=== PATIENT | female | born 1965 | race Caucasian/White ===

== ENCOUNTER 2020-04-21 10:32 | Outpatient (CLI) | payer BC, OTHER, SELFPAY ==
--- NOTE | 2020-04-26 11:42 | WPDHOLTEREM ---
Holter/Event Monitor Holter/Event Monitor Date of procedure: 04/21/20 Procedure Type: 48 hour holter monitor Indications: Palpitations Conclusion: 1. 48 hour holter monitor on 04/21/20. 2. Underlying rhythm is sinus rhythm. HR range 52-111 bpm; average HR 78 bpm. 3. There are 5 premature supraventricular complexes. No supraventricular tachycardia. 4. No premature ventricular complexes. No ventricular tachycardia. 5. No sinoatrial or atrioventricular blocks. No significant pauses greater than 2 seconds. 6. Patient reports symptoms of trouble breathing and dizziness which demonstrate sinus rhythm, HR range 90-94 bpm.
== END 2020-04-21 10:33 | disposition home or self-care (01) ==
LOC: ANHCARD 10:34
PROVIDERS: PCP Family Medicine; Visit Provider Family Medicine
DX: R00.2 Palpitations (principal)
CPT/HCPCS: 93225; 93226

== ENCOUNTER 2020-04-29 10:25 | Outpatient (CLI) | payer BC, OTHER, SELFPAY ==
--- NOTE | ~2020-04-29 | MM_ITS ---
EXAMINATION: MM screening adolfo BI w liang HISTORY: Screening TECHNIQUE: Craniocaudal and mediolateral oblique 3-D tomosynthesis images were obtained and synthetic 2-D images were generated. CAD analysis was submitted and interpreted. COMPARISON: Comparison to multiple prior studies sequentially, with oldest reviewed study dated 12/2017. BREAST PARENCHYMAL COMPOSITION: There are scattered areas of fibroglandular density. FINDINGS: There is no evidence of suspicious mass, calcification, or architectural distortion to sugg est malignancy in either breast. There has been no suspicious interval change. IMPRESSION: 1. No mammographic evidence of malignancy. 2. Recommend routine screening mammography in one year. BI-RADS Category 1: Negative Reviewed, dictated and finalized at location A.
== END 2020-04-29 10:26 | disposition home or self-care (01) ==
PROVIDERS: PCP Family Medicine; Visit Provider Family Medicine
DX: Z12.31 Encounter for screening mammogram for malignant neoplasm of breast (principal)
CPT/HCPCS: 77063; 77067

== ENCOUNTER 2020-11-13 12:03 | Emergency (ER) | payer BC, MEDICAID, SELFPAY ==
[2020-11-13 12:12] VITALS: BP 123/78; PULSE 78; RESP 16; TEMP 36.7; O2SAT 98
--- NOTE | 2020-11-13 12:27 | ED.URI ---
HPI - URI/Sore Throat General Chief Complaint: Upper Respiratory Infection Stated Complaint: sinus infection Source: patient, RN notes reviewed and old records reviewed Mode of arrival: ambulatory Limitations: no limitations History of Present Illness HPI Narrative: 55 year old female presents to express care with complaints of progressively increase in symptoms of sore throat, nasal stuffiness, low grade fever, and cough since Sunday. Patient states that she called her doctor and was prescribed Augmentin and she has been taking antibiotic since . Patient states that she has had intermittent temperatures up to 102F since Sunday and has been taking Tylenol and she started Mucinex last night. She reports that she is expectorating clear sputum with her cough and has noted some dyspnea with exertion. Patient is non smoker had had history of past bronchitis, pneumonia and sinusitis. MD elicited complaint: cough, sore throat and nasal congestion Pertinent past history: pneumonia and sinusitis Onset (ago): day(s) (4) Consistency: progressively worsening Exacerbating factors: swallowing and exertion Associated symptoms: fever Treatments prior to arrival: acetaminophen and other (started Augmentin on The from PCP, started ) Related Data Home Medications Medication Instructions Recorded Confirmed alprazolam 0.25 mg PO DAILY 07/03/19 11/13/20 carbidopa-levodopa 1 tablet PO DIRECTED 07/03/19 11/13/20 fenofibrate nanocrystallized 145 mg PO DAILY 07/03/19 11/13/20 fluoxetine 20 mg PO DAILY 07/03/19 11/13/20 metformin 500 mg PO DIRECTED 07/03/19 11/13/20 montelukast mg 07/03/19 10/28/20 topiramate 07/03/19 10/28/20 amitriptyline 10 mg tablet 10 mg PO DAILY tablet 10/28/20 11/13/20 atorvastatin 20 mg tablet 20 mg PO DAILY tablet 10/28/20 11/13/20 blood sugar diagnostic #10 ea 10/28/20 10/28/20 butalbital 50 mg-acetaminophen 325 1 cap PO Q4H PRN 10/28/20 11/13/20 mg-caffeine 40 mg-codeine 30 mg cap lancets 33 gauge #100 ea 10/28/20 10/28/20 phenytoin sodium extended 100 mg 100 mg PO DAILY cap 04/08/21 04/08/21 capsule sumatriptan succinate 100 mg tablet 100 mg PO ONCE 10/28/20 10/28/20 amoxicillin-pot clavulanate 1 tablet PO BID 11/13/20 11/13/20 Allergies Allergy/AdvReac Type Severity Reaction Status Date / Time hydrochlorothiazide Allergy Unknown Unknown Verified 11/13/20 12:11 iodine Allergy Unknown Unknown Verified 11/13/20 12:11 sertraline Allergy Unknown Unknown Verified 11/13/20 12:11 SEAFOOD Allergy Unknown RASH Uncoded 11/13/20 12:11 Review of Systems Review of Systems: Narrative: CONSTITUTIONAL: Reports intermittent fever, chills, or sweats. EYES: Denies visual changes, redness, or discharge. ENT:Positive rhinorrhea, congestion, facial sinus pressure, sore throat, or otalgia. CARDIOVASCULAR: Denies chest pain, palpitations, or edema. RESPIRATORY: Positive cough with stated dyspnea on exertion GASTROINTESTINAL: Denies abdominal pain, nausea, vomiting, or diarrhea. GENITOURINARY: Denies dysuria or hematuria. SKIN: Denies rash or itching. MUSCULOSKELETAL: Denies back pain, joint pain, or myalgia. NEUROLOGIC: Denies headache, numbness, or weakness. PSYCHIATRIC: Positive history anxiety or depression. All systems reviewed & are unremarkable except as noted in HPI and below PMFSH Past Medical History Medical History Anxiety with depression Arthritis Bronchitis Diabetes Diverticulitis DVT (deep venous thrombosis) Hyperlipidemia Migraines Restless leg syndrome Seasonal allergies Seizures Surgical History Surgical History H/O: hysterectomy History of repair of inguinal hernia History of tonsillectomy and adenoidectomy Previous section S/P right colectomy Family History Family History Mother Hypertension Family h
[2020-11-13 12:32] VITALS: BP 123/78; PULSE 78; RESP 16; TEMP 36.7; O2SAT 98
[2020-11-14 00:41] LABS: SARS-CoV-2 RNA PCR Negative
== END 2020-11-13 13:06 | disposition home or self-care (01) ==
PROVIDERS: Emergency Provider Registered Nurse
DX: R05 Cough (principal); J06.9 Acute upper respiratory infection, unspecified; Z20.822 Contact with and (suspected) exposure to COVID-19; Z87.891 Personal history of nicotine dependence; M19.90 Unspecified osteoarthritis, unspecified site; E11.9 Type 2 diabetes mellitus without complications; Z86.718 Personal history of other venous thrombosis and embolism; E78.5 Hyperlipidemia, unspecified; G25.81 Restless legs syndrome; F41.8 Other specified anxiety disorders; G40.909 Epilepsy, unspecified, not intractable, without status epilepticus
CPT/HCPCS: 87081; 87426; 87880; 99213; C9803; G0463; U0003; U0005

== ENCOUNTER 2021-08-05 17:34 | Emergency (ER) | payer MEDICAID, SELFPAY ==
[2021-08-05 18:04] VITALS: BP 153/81; PULSE 74; RESP 16; TEMP 36.4; O2SAT 98
--- NOTE | 2021-08-05 18:30 | ED.URI ---
HPI - URI/Sore Throat General Chief Complaint: Upper Respiratory Infection Stated Complaint: Sinus Time Seen by Provider: 08/05/21 18:30 Source: patient and RN notes reviewed Mode of arrival: ambulatory Limitations: no limitations History of Present Illness HPI Narrative: 56-year-old female presents with concern for 2-week history of nasal congestion, rhinorrhea, cough. She reports she has been taking [id number] medications with some relief. She reports she found out today that her tested positive for COVID he was had symptoms for approximately 5 days. Reports she was sick before he was. She reports she requires a COVID test to return to work. MD elicited complaint: cough and sore throat Related Data Home Medications Medication Instructions Recorded Confirmed alprazolam 0.25 mg PO DAILY 07/03/19 11/13/20 carbidopa-levodopa 1 tablet PO DIRECTED 07/03/19 11/13/20 fenofibrate nanocrystallized 145 mg PO DAILY 07/03/19 11/13/20 fluoxetine 20 mg PO DAILY 07/03/19 11/13/20 metformin 500 mg PO DIRECTED 07/03/19 11/13/20 montelukast mg 07/03/19 10/28/20 topiramate 07/03/19 10/28/20 amitriptyline 10 mg tablet 10 mg PO DAILY tablet 10/28/20 11/13/20 atorvastatin 20 mg tablet 20 mg PO DAILY tablet 10/28/20 11/13/20 blood sugar diagnostic #10 ea 10/28/20 10/28/20 butalbital 50 mg-acetaminophen 325 1 cap PO Q4H PRN 10/28/20 11/13/20 mg-caffeine 40 mg-codeine 30 mg cap lancets 33 gauge #100 ea 10/28/20 10/28/20 phenytoin sodium extended 100 mg 100 mg PO DAILY cap 10/28/20 10/28/20 capsule sumatriptan succinate 100 mg tablet 100 mg PO ONCE 10/28/20 10/28/20 Allergies Allergy/AdvReac Type Severity Reaction Status Date / Time hydrochlorothiazide Allergy Unknown Unknown Verified 11/13/20 12:11 iodine Allergy Unknown Unknown Verified 11/13/20 12:11 sertraline Allergy Unknown Unknown Verified 11/13/20 12:11 SEAFOOD Allergy Unknown RASH Uncoded 11/13/20 12:11 Review of Systems Review of Systems: CONSTITUTIONAL: Denies malaise, chills, sweats, or fever. EYES: Denies visual changes, redness, or discharge. ENT: Reports rhinorrhea, congestion. Denies sinus pain, otalgia and sore throat. CARDIOVASCULAR: Denies chest pain, palpitations, or edema. RESPIRATORY: Reports cough. Denies dyspnea. GASTROINTESTINAL: Denies abdominal pain, nausea, vomiting, diarrhea SKIN: Denies rash or itching. MUSCULOSKELETAL: Denies myalgia. NEUROLOGIC: Denies headache. All systems reviewed & are unremarkable except as noted in HPI and below PMFSH Past Medical History Medical History Anxiety with depression Arthritis Bronchitis Diabetes Diverticulitis DVT (deep venous thrombosis) Hyperlipidemia Migraines Restless leg syndrome Seasonal allergies Seizures Surgical History Surgical History H/O: hysterectomy History of repair of inguinal hernia History of tonsillectomy and adenoidectomy Previous section S/P right colectomy Family History Family History Mother Hypertension Family history of chronic obstructive pulmonary disease Family history of congestive heart failure Patient's mother is Family history of cardiovascular disease Family history of emphysema Father Cerebrovascular accident Family history of diabetes mellitus in first degree relative Family history of kidney disease Diabetes mellitus Sibling Depression Social History Social History (Updated 11/13/20 @ 12:37 by Suzette Gracia NP) Smoking status: Former smoker Alcohol intake: current Substance use: never Gender identity (if verbalized by the patient): Female Comments At time of signature, agree with nursing past medical, surgical, social and family history. There is no relevant family history pertinent to the presenting complaint Exam Na
== END 2021-08-05 19:01 | disposition home or self-care (01) ==
PROVIDERS: Emergency Provider Nurse Practitioner
DX: J40 Bronchitis, not specified as acute or chronic (principal); Z20.822 Contact with and (suspected) exposure to COVID-19; M19.90 Unspecified osteoarthritis, unspecified site; E11.9 Type 2 diabetes mellitus without complications; Z86.718 Personal history of other venous thrombosis and embolism; E78.5 Hyperlipidemia, unspecified; G25.81 Restless legs syndrome; G40.909 Epilepsy, unspecified, not intractable, without status epilepticus; F41.9 Anxiety disorder, unspecified; F32.9 Major depressive disorder, single episode, unspecified
CPT/HCPCS: 87426; 99213; C9803; G0463

== ENCOUNTER 2021-12-27 13:21 | Emergency (ER) | payer OTHER, SELFPAY ==
--- NOTE | ~2021-12-27 | XR_ITS ---
XR knee RT 3V DATE: 12/27/2021 13:48 INDICATION: Generalized right knee pain after straining injury 4 days ago TECHNIQUE: 3 views COMPARISON: None FINDINGS: Minimal periarticular at all 3 compartments consistent with mild osteoarthritis. Medial and lateral compartment joint spaces appear relatively well preserved. No fracture or dislocation or joint effusion, radiopaque intra-articular loose body or chondrocalcino sis is noted. No periosteal reaction or bone destruction. IMPRESSION: Mild tricompartment osteoarthritis Reviewed, dictated and finalized at location [facility].
[2021-12-27 13:30] VITALS: BP 129/69; PULSE 73; RESP 16; TEMP 36.8; O2SAT 99
--- NOTE | 2021-12-27 13:30 | ED.LOWEXIN ---
HPI - Extremity Injury (Lower) General Chief Complaint: Extremity Injury, Lower Stated Complaint: Right Knee Pain Time Seen by Provider: 12/27/21 13:31 Source: patient and RN notes reviewed Mode of arrival: ambulatory Limitations: no limitations History of Present Illness HPI Narrative: 56-year-old female presents to the [facility] with complaints of right knee pain. Had a twisting injury on Sunday, 4 days ago while walking upstairs. History of chronic knee pain. No swelling or bruising noted. Did not fall. Full range of motion. Full range of motion of the ankle. Positive pedal pulse. Related Data Home Medications Medication Instructions Recorded Confirmed alprazolam 0.25 mg tablet 0.25 mg PO DAILY 07/03/19 12/27/21 carbidopa 25 mg-levodopa 100 mg 1 tablet PO DIRECTED 07/03/19 12/27/21 tablet fenofibrate nanocrystallized 145 145 mg PO DAILY 07/03/19 12/27/21 mg tablet fluoxetine 20 mg capsule 20 mg PO DAILY 07/03/19 12/27/21 metformin 500 mg tablet 500 mg PO DIRECTED 07/03/19 12/27/21 montelukast 10 mg tablet 10 mg PO DAILY 07/03/19 12/27/21 topiramate 100 mg tablet 100 mg PO DAILY 07/03/19 12/27/21 amitriptyline 10 mg tablet 10 mg PO DAILY 10/28/20 12/27/21 atorvastatin 20 mg tablet 20 mg PO DAILY 10/28/20 12/27/21 blood sugar diagnostic #10 ea 10/28/20 10/28/20 butalbital 50 mg-acetaminophen 325 1 cap PO Q4H PRN Pain 10/28/20 12/27/21 mg-caffeine 40 mg-codeine 30 mg cap lancets 33 gauge (BD Ultra Fine #100 ea 10/28/20 10/28/20 Lancets) phenytoin sodium extended 100 mg 100 mg PO DAILY 10/28/20 12/27/21 capsule sumatriptan succinate 100 mg tablet 100 mg PO ONCE 10/28/20 12/27/21 Allergies Allergy/AdvReac Type Severity Reaction Status Date / Time hydrochlorothiazide Allergy Unknown Unknown Verified 12/27/21 13:31 iodine Allergy Unknown Unknown Verified 12/27/21 13:31 sertraline Allergy Unknown Unknown Verified 12/27/21 13:31 fentanyl Allergy Other Verified 12/27/21 13:44 SEAFOOD Allergy Unknown RASH Uncoded 12/27/21 13:31 Review of Systems Review of Systems: All systems reviewed & are unremarkable except as noted in HPI and below Constitutional: Constitutional: Reports no additional constitutional complaints, Denies chills and Denies fever(s) Eyes: Eyes: Reports no additional eye complaints ENT: Reports system reviewed and no additional complaints, except as documented Cardiovascular: Cardiovascular: Reports no additional cardiovascular complaints Respiratory: Respiratory: Reports no additional respiratory complaints Gastrointestinal: Gastrointestinal: Reports no additional gastrointestinal complaints Musculoskeletal: Musculoskeletal: Reports as per HPI, Reports arthralgias (Right knee) and Denies joint swelling Integumentary/Breasts: Skin/Breast: Reports system reviewed and no additional complaints, except as docu Neurologic: Reports system reviewed and no additional complaints, except as documented Psychiatric: Psychiatric: Reports no additional psychiatric complaints Allergic/Immunologic: Allergic/Immunologic: Reports no additional allergic/immunologic complaints PMFSH Past Medical History Medical History Anxiety with depression Arthritis Bronchitis Diabetes Diverticulitis DVT (deep venous thrombosis) Hyperlipidemia Migraines Restless leg syndrome Seasonal allergies Seizures Surgical History Surgical History H/O: hysterectomy History of repair of inguinal hernia History of tonsillectomy and adenoidectomy Previous section S/P right colectomy Family History Family History Mother Hypertension Family history of chronic obstructive pulmonary disease Family history of congestive heart failure Patient's mother is Family history of cardiovascular disease Family history of emphysema Fath
[2021-12-27 13:34] VITALS: BP 129/69; PULSE 73; RESP 16; TEMP 36.8; O2SAT 99
== END 2021-12-27 14:07 | disposition home or self-care (01) ==
PROVIDERS: Emergency Provider Nurse Practitioner; PCP Physician Assistant
DX: S83.91XA Sprain of unspecified site of right knee, initial encounter (principal); X50.9XXA Other and unspecified overexertion or strenuous movements or postures, initial encounter; M17.11 Unilateral primary osteoarthritis, right knee; Z87.891 Personal history of nicotine dependence; E11.9 Type 2 diabetes mellitus without complications; Z86.718 Personal history of other venous thrombosis and embolism; E78.5 Hyperlipidemia, unspecified; G25.81 Restless legs syndrome; G40.909 Epilepsy, unspecified, not intractable, without status epilepticus
CPT/HCPCS: 73562; 99213; G0463

== ENCOUNTER 2022-07-21 15:22 | Emergency (ER) | payer OTHER, SELFPAY ==
[2022-07-21 15:34] VITALS: BP 149/89; PULSE 64; RESP 20; TEMP 36.5; O2SAT 100
--- NOTE | 2022-07-21 16:00 | ED.URI ---
HPI - URI/Sore Throat General Chief Complaint: Upper Respiratory Infection Stated Complaint: Sore Throat, SOB, Cough Time Seen by Provider: 07/21/22 16:00 Source: patient Mode of arrival: ambulatory Limitations: no limitations History of Present Illness HPI Narrative: 57-year-old female presents with complaint of cough, chest congestion for 1 month. States that she saw her primary care physician for same complaint and was given Augmentin with no improvement. States she called her doctor back and told her that she was still coughing and was told to go to urgent care because she did not know what was wrong with her . Patient denies shortness of breath. No recent fever. Cough is worse at night. All systems reviewed and negative except as noted above. Related Data Home Medications Medication Instructions Recorded Confirmed alprazolam 0.25 mg tablet 0.25 mg PO DAILY 07/03/19 07/21/22 carbidopa 25 mg-levodopa 100 mg 1 tablet PO DIRECTED 07/03/19 07/21/22 tablet fenofibrate nanocrystallized 145 145 mg PO DAILY 07/03/19 07/21/22 mg tablet fluoxetine 20 mg capsule 20 mg PO DAILY 07/03/19 07/21/22 metformin 500 mg tablet 500 mg PO DIRECTED 07/03/19 07/21/22 montelukast 10 mg tablet 10 mg PO DAILY 07/03/19 07/21/22 topiramate 100 mg tablet 100 mg PO DAILY 07/03/19 07/21/22 amitriptyline 10 mg tablet 10 mg PO DAILY 10/28/20 07/21/22 atorvastatin 20 mg tablet 20 mg PO DAILY 10/28/20 07/21/22 blood sugar diagnostic #10 ea 10/28/20 07/21/22 butalbital 50 mg-acetaminophen 325 1 cap PO Q4H PRN Pain 10/28/20 07/21/22 mg-caffeine 40 mg-codeine 30 mg cap lancets 33 gauge (BD Ultra Fine #100 ea 10/28/20 07/21/22 Lancets) phenytoin sodium extended 100 mg 100 mg PO DAILY 10/28/20 07/21/22 capsule sumatriptan succinate 100 mg tablet 100 mg PO ONCE 10/28/20 07/21/22 hydroxyzine HCl 25 mg tablet 25 mg PO DAILY 07/21/22 07/21/22 Allergies Allergy/AdvReac Type Severity Reaction Status Date / Time hydrochlorothiazide Allergy Unknown Unknown Verified 07/21/22 15:28 iodine Allergy Unknown Unknown Verified 07/21/22 15:28 sertraline Allergy Unknown Unknown Verified 07/21/22 15:28 fentanyl Allergy Other Verified 07/21/22 15:28 SEAFOOD Allergy Unknown RASH Uncoded 07/21/22 15:28 Review of Systems Review of Systems: CONSTITUTIONAL: Denies fever, chills, or sweats. EYES: Denies visual changes, redness, or discharge. ENT: Denies rhinorrhea, congestion, sore throat, or otalgia. CARDIOVASCULAR: denies chest pain, palpitations, or edema. RESPIRATORY: reports cough, chest congestion. Denies dyspnea. GASTROINTESTINAL: Denies abdominal pain, nausea, vomiting, or diarrhea. GENITOURINARY: Denies dysuria or hematuria. SKIN: Denies rash or itching. MUSCULOSKELETAL: Denies back pain, joint pain, or myalgia. NEUROLOGIC: Denies headache, numbness, or weakness. PSYCHIATRIC: Denies anxiety or depression. All other systems reviewed are negative, except as documented in HPI. [facility] Past Medical History Medical History Anxiety with depression Arthritis Bronchitis Diabetes Diverticulitis DVT (deep venous thrombosis) Hyperlipidemia Migraines Restless leg syndrome Seasonal allergies Seizures Surgical History Surgical History H/O: hysterectomy History of repair of inguinal hernia History of tonsillectomy and adenoidectomy Previous section S/P right colectomy Family History Family History Mother Hypertension Family history of chronic obstructive pulmonary disease Family history of congestive heart failure Patient's mother is Family history of cardiovascular disease Family history of emphysema Father Cerebrovascular accident Family history of diabetes mellitus in first degree relative Family history of kidney disease Diabetes mellitus Sibli
== END 2022-07-21 16:20 | disposition home or self-care (01) ==
PROVIDERS: Emergency Provider Nurse Practitioner Family; PCP Physician Assistant
DX: J20.9 Acute bronchitis, unspecified (principal); Z87.891 Personal history of nicotine dependence; M19.90 Unspecified osteoarthritis, unspecified site; E11.9 Type 2 diabetes mellitus without complications; Z79.84 Long term (current) use of oral hypoglycemic drugs; E78.5 Hyperlipidemia, unspecified; G25.81 Restless legs syndrome; F41.9 Anxiety disorder, unspecified; F32.A Depression, unspecified; G40.909 Epilepsy, unspecified, not intractable, without status epilepticus; Z86.718 Personal history of other venous thrombosis and embolism
CPT/HCPCS: 99213; G0463

== ENCOUNTER 2023-05-09 12:19 | Emergency (ER) | payer OTHER, SELFPAY ==
--- NOTE | ~2023-05-09 | XR_ITS ---
Clinical Indication: Shortness of breath PA and lateral views of the chest: Comparison: 12/09/2016 Findings: The lungs are clear, without evidence of focal consolidation or pleural effusion. Cardiome diastinal silhouette is within normal limits. Bones and soft tissues are unremarkable. Impression: Normal chest. Reviewed, dictated and finalized at [facility]. Impression: Normal chest.
[2023-05-09 12:28] VITALS: BP 114/73; PULSE 71; RESP 20; TEMP 36.5; O2SAT 98
--- NOTE | 2023-05-09 12:49 | ED.URI ---
HPI - URI/Sore Throat General Chief Complaint: Upper Respiratory Infection Stated Complaint: SOB Time Seen by Provider: 05/09/23 12:49 Source: patient, RN notes reviewed and old records reviewed Mode of arrival: ambulatory Limitations: no limitations History of Present Illness HPI Narrative: 58-year-old female presents to the [facility] with complaints of shortness of breath and cough for 2.5 weeks had seen PCM 8 days ago. states that she is not any better Patient had just finished a round of steroids. Is taking cough tablets. Denies fevers, chest pain, abdominal pain. No nausea vomiting or diarrhea. Onset (ago): week(s) (2.5) Related Data Home Medications Medication Instructions Recorded Confirmed alprazolam 0.25 mg tablet 0.25 mg PO DAILY 07/03/19 05/09/23 carbidopa 25 mg-levodopa 100 mg 1 tablet PO DIRECTED 07/03/19 05/09/23 tablet fenofibrate nanocrystallized 145 145 mg PO DAILY 07/03/19 05/09/23 mg tablet fluoxetine 20 mg capsule 20 mg PO DAILY 07/03/19 05/09/23 montelukast 10 mg tablet 10 mg PO DAILY 07/03/19 05/09/23 atorvastatin 20 mg tablet 20 mg PO DAILY 10/28/20 05/09/23 blood sugar diagnostic #10 ea 10/28/20 07/21/22 lancets 33 gauge (BD Ultra Fine #100 ea 10/28/20 07/21/22 Lancets) phenytoin sodium extended 100 mg 100 mg PO DAILY 10/28/20 05/09/23 capsule hydroxyzine HCl 25 mg tablet 25 mg PO DAILY 07/21/22 05/09/23 baclofen 10 mg tablet mg 05/09/23 dulaglutide 0.75 mg/0.5 mL mg subcut 05/09/23 subcutaneous pen injector ([facility]) loratadine 10 mg tablet mg 05/09/23 Allergies Allergy/AdvReac Type Severity Reaction Status Date / Time hydrochlorothiazide Allergy Unknown Unknown Verified 05/09/23 12:32 iodine Allergy Unknown Unknown Verified 05/09/23 12:32 sertraline Allergy Unknown Unknown Verified 05/09/23 12:32 fentanyl Allergy Other Verified 05/09/23 12:32 SEAFOOD Allergy Unknown RASH Uncoded 05/09/23 12:32 Review of Systems Review of Systems: All systems reviewed & are unremarkable except as noted in HPI and below Constitutional: Constitutional: Reports no additional constitutional complaints Eyes: Eyes: Reports no additional eye complaints ENT: Reports system reviewed and no additional complaints, except as documented Cardiovascular: Cardiovascular: Reports no additional cardiovascular complaints, Denies chest pain and Denies dyspnea Respiratory: Respiratory: Reports as per HPI, Denies chest congestion, Reports cough and Reports dyspnea Gastrointestinal: Gastrointestinal: Reports no additional gastrointestinal complaints, Denies abdominal pain, Denies nausea and Denies vomiting Musculoskeletal: Musculoskeletal: Reports no additional musculoskeletal complaints Integumentary/Breasts: Skin/Breast: Reports system reviewed and no additional complaints, except as docu Neurologic: Reports system reviewed and no additional complaints, except as documented Psychiatric: Psychiatric: Reports no additional psychiatric complaints Allergic/Immunologic: Allergic/Immunologic: Reports no additional allergic/immunologic complaints PMFSH Past Medical History Medical History Anxiety with depression Arthritis Bronchitis Diabetes Diverticulitis DVT (deep venous thrombosis) Hyperlipidemia Migraines Restless leg syndrome Seasonal allergies Seizures Surgical History Surgical History H/O: hysterectomy History of repair of inguinal hernia History of tonsillectomy and adenoidectomy Previous section S/P right colectomy Family History Family History Mother Hypertension Family history of chronic obstructive pulmonary disease Family history of congestive heart failure Patient's mother is Family history of cardiovascular disease Family history of emphysema Father Cerebrovascular accident Fam
== END 2023-05-09 13:25 | disposition home or self-care (01) ==
PROVIDERS: Emergency Provider Nurse Practitioner; PCP Physician Assistant
DX: J40 Bronchitis, not specified as acute or chronic (principal); Z87.891 Personal history of nicotine dependence; M19.90 Unspecified osteoarthritis, unspecified site; E11.9 Type 2 diabetes mellitus without complications; G40.909 Epilepsy, unspecified, not intractable, without status epilepticus; E78.5 Hyperlipidemia, unspecified; G25.81 Restless legs syndrome; Z86.718 Personal history of other venous thrombosis and embolism; F41.9 Anxiety disorder, unspecified; F32.A Depression, unspecified
CPT/HCPCS: 71046; 99213; G0463

== ENCOUNTER 2023-06-25 14:03 | Emergency (ER) | payer OTHER, SELFPAY ==
--- NOTE | ~2023-06-25 | XR_ITS ---
EXAMINATION: XR chest 2V 06/25/2023 14:29 INDICATION: Cough and congestion PROCEDURE: 2 view chest COMPARISON: Comparison to multiple prior studies sequentially, with oldest reviewed study dated 12/04. FINDINGS: The lungs are clear. The cardiomediastinal silhouette is within normal limits. There are no pleural effusions. There is no pneumothorax suspected. IMPRESSION: 1: NO ACUTE CARDIOPULMONARY DISEASE. Reviewed, dictated and finalized at location [facility]
--- NOTE | 2023-06-25 14:06 | ED.URI ---
HPI - URI/Sore Throat General Chief Complaint: Upper Respiratory Infection Stated Complaint: Cough/Weakness Time Seen by Provider: 06/25/23 14:11 Source: patient Mode of arrival: ambulatory Limitations: no limitations History of Present Illness HPI Narrative: Jayme is a 58-year-old female patient presenting to clinic today with complaints of cough, sore throat, fatigue, and mild shortness of breath x1 week. She reports she had fever for a few days but now it has improved MD elicited complaint: sore throat and nasal congestion Related Data Home Medications Medication Instructions Recorded Confirmed alprazolam 0.25 mg tablet 0.25 mg PO DAILY 07/03/19 06/25/23 carbidopa 25 mg-levodopa 100 mg 1 tablet PO DIRECTED 07/03/19 06/25/23 tablet fenofibrate nanocrystallized 145 145 mg PO DAILY 07/03/19 06/25/23 mg tablet fluoxetine 20 mg capsule 20 mg PO DAILY 07/03/19 06/25/23 montelukast 10 mg tablet 10 mg PO DAILY 07/03/19 06/25/23 atorvastatin 20 mg tablet 20 mg PO DAILY 10/28/20 06/25/23 blood sugar diagnostic #10 ea 10/28/20 06/25/23 lancets 33 gauge (BD Ultra Fine #100 ea 10/28/20 06/25/23 Lancets) phenytoin sodium extended 100 mg 100 mg PO DAILY 10/28/20 06/25/23 capsule hydroxyzine HCl 25 mg tablet 25 mg PO DAILY 07/21/22 06/25/23 baclofen 10 mg tablet 10 mg DIRECTED 05/09/23 06/25/23 dulaglutide 0.75 mg/0.5 mL 0.75 mg subcut DIRECTED 05/09/23 06/25/23 subcutaneous pen injector (Trulicity) loratadine 10 mg tablet 10 mg DIRECTED 05/09/23 06/25/23 Allergies Allergy/AdvReac Type Severity Reaction Status Date / Time hydrochlorothiazide Allergy Unknown Unknown Verified 05/09/23 12:32 iodine Allergy Unknown Unknown Verified 05/09/23 12:32 sertraline Allergy Unknown Unknown Verified 05/09/23 12:32 fentanyl Allergy Other Verified 05/09/23 12:32 SEAFOOD Allergy Unknown RASH Uncoded 05/09/23 12:32 Review of Systems Review of Systems: Pertinent positives per HPI. Patient denies any fever, chills, rash, headache, visual changes, dizziness, runny nose, sore throat, shortness of breath, chest pain, palpitations, nausea, vomiting, diarrhea, constipation, abdominal pain, or any urinary issues. PMFSH Past Medical History Medical History Anxiety with depression Arthritis Bronchitis Diabetes Diverticulitis DVT (deep venous thrombosis) Hyperlipidemia Migraines Restless leg syndrome Seasonal allergies Seizures Surgical History Surgical History H/O: hysterectomy History of repair of inguinal hernia History of tonsillectomy and adenoidectomy Previous section S/P right colectomy Family History Family History Mother Hypertension Family history of chronic obstructive pulmonary disease Family history of congestive heart failure Patient's mother is Family history of cardiovascular disease Family history of emphysema Father Cerebrovascular accident Family history of diabetes mellitus in first degree relative Family history of kidney disease Diabetes mellitus Sibling Depression Social History Social History Smoking status: Former smoker Alcohol intake: current Substance use: never Living arrangements: with family Gender identity (if verbalized by the patient): Female Comments At the time of my signature, I reviewed and agree with the nursing past medical, surgical, social, and family history. There is no relevant family history pertinent to the patient complaint. Exam Narrative: General: Well-developed, well nourished, in no apparent distress Head: Normocephalic, atraumatic Eyes: Pupils equally round and reactive to light bilaterally, EOM intact, sclera and conjunctive clear, no discharge, lids normal Ears: TMs int
[2023-06-25 14:16] VITALS: BP 139/83; PULSE 88; RESP 20; TEMP 37.2; O2SAT 98
== END 2023-06-25 14:56 | disposition home or self-care (01) ==
PROVIDERS: Emergency Provider Nurse Practitioner Family; PCP Physician Assistant
DX: J02.0 Streptococcal pharyngitis (principal); Z87.891 Personal history of nicotine dependence; G40.909 Epilepsy, unspecified, not intractable, without status epilepticus; E11.9 Type 2 diabetes mellitus without complications; E78.5 Hyperlipidemia, unspecified; G25.81 Restless legs syndrome; F41.9 Anxiety disorder, unspecified; F32.A Depression, unspecified; M19.90 Unspecified osteoarthritis, unspecified site
CPT/HCPCS: 71046; 87880; 99213; G0463

== ENCOUNTER 2023-08-09 15:01 | Emergency (ER) | payer OTHER, SELFPAY ==
--- NOTE | ~2023-08-09 | XR_ITS ---
EXAMINATION: XR chest 2V DATE: 08/09/2023 15:46 INDICATION: Cough and shortness of breath TECHNIQUE: PA and lateral views of the chest are obtained. COMPARISON: 06/25/2023 FINDINGS: The lungs are free of acute opacities. No pleural effusion or pneumothorax. The cardiomedia stinal silhouette is normal. There is moderate thoracic spondylosis. IMPRESSION: 1. No acute cardiopulmonary abnormality. Reviewed, dictated and finalized at location [facility] [employer]
--- NOTE | 2023-08-09 15:06 | ED.URI ---
HPI - URI/Sore Throat General Chief Complaint: Upper Respiratory Infection Stated Complaint: chest congestion ,wheezing,cough Time Seen by Provider: 08/09/23 15:05 Source: patient Mode of arrival: ambulatory Limitations: no limitations History of Present Illness HPI Narrative: Jayme is a 58-year-old female patient presenting to the clinic today with complaints of chest congestion, wheezing, and cough. She reports she does have a slight sore throat but think that is from coughing. Was treated last month for strep. Does have a temperature of 38.2? C in the clinic today. Oxygen saturation is 100% on room air. Patient is having a hard time talking without coughing. MD elicited complaint: cough, sore throat, nasal congestion and other (Wheezing) Related Data Home Medications Medication Instructions Recorded Confirmed alprazolam 0.25 mg tablet 0.25 mg PO DAILY 07/03/19 08/09/23 carbidopa 25 mg-levodopa 100 mg 1 tablet PO DIRECTED 07/03/19 08/09/23 tablet fenofibrate nanocrystallized 145 145 mg PO DAILY 07/03/19 08/09/23 mg tablet fluoxetine 20 mg capsule 20 mg PO DAILY 07/03/19 08/09/23 montelukast 10 mg tablet 10 mg PO DAILY 07/03/19 08/09/23 atorvastatin 20 mg tablet 20 mg PO DAILY 10/28/20 08/09/23 blood sugar diagnostic #10 ea 10/28/20 08/09/23 lancets 33 gauge (BD Ultra Fine #100 ea 10/28/20 08/09/23 Lancets) phenytoin sodium extended 100 mg 100 mg PO DAILY 10/28/20 08/09/23 capsule hydroxyzine HCl 25 mg tablet 25 mg PO DAILY 07/21/22 08/09/23 baclofen 10 mg tablet 10 mg DIRECTED 05/09/23 08/09/23 dulaglutide 0.75 mg/0.5 mL 0.75 mg subcut DIRECTED 05/09/23 08/09/23 subcutaneous pen injector ([facility]) loratadine 10 mg tablet 10 mg DIRECTED 05/09/23 08/09/23 albuterol sulfate 90 mcg/actuation 90 mcg inhalation DIRECTED 08/09/23 08/09/23 aerosol inhaler Allergies Allergy/AdvReac Type Severity Reaction Status Date / Time fentanyl Allergy Mild Other Verified 08/09/23 15:15 hydrochlorothiazide Allergy Mild Itching Verified 08/09/23 15:15 iodine Allergy Mild Itching Verified 08/09/23 15:15 sertraline Allergy Mild Itching Verified 08/09/23 15:15 SEAFOOD Allergy Intermediate RASH Uncoded 08/09/23 15:15 Review of Systems Review of Systems: Pertinent positives per HPI. Patient denies any fever, chills, rash, headache, visual changes, dizziness, chest pain, palpitations, nausea, vomiting, diarrhea, constipation, abdominal pain, or any urinary issues. [facility] Past Medical History Medical History Anxiety with depression Arthritis Bronchitis Diabetes Diverticulitis DVT (deep venous thrombosis) Hyperlipidemia Migraines Restless leg syndrome Seasonal allergies Seizures Surgical History Surgical History H/O: hysterectomy History of repair of inguinal hernia History of tonsillectomy and adenoidectomy Previous section S/P right colectomy Family History Family History Mother Hypertension Family history of chronic obstructive pulmonary disease Family history of congestive heart failure Patient's mother is Family history of cardiovascular disease Family history of emphysema Father Cerebrovascular accident Family history of diabetes mellitus in first degree relative Family history of kidney disease Diabetes mellitus Sibling Depression Social History Social History Smoking status: Former smoker Alcohol intake: current Substance use: never Living arrangements: with family Gender identity (if verbalized by the patient): Female Comments At the time of my signature, I reviewed and agree with the nursing past medical, surgical, social, and family history. There is no relevant family history pertinent to the patient com
[2023-08-09 15:16] VITALS: BP 157/69; PULSE 88; RESP 16; TEMP 38.2; O2SAT 100
[2023-08-09 15:18] VITALS: BP 157/69; PULSE 88; RESP 16; TEMP 38.2; O2SAT 100
[2023-08-09] MEDS: ALBUTEROL SULFATE NEB 2.5 MG/3 ML INH INHALATION (15:58)
[2023-08-09] MEDS: IPRATROPIUM BR 0.02% INH SOLN 0.5 MG/2.5 ML VIAL INHALATION (15:58)
[2023-08-09 16:00] VITALS: PULSE 79; RESP 22; O2SAT 95
[2023-08-09 16:20] VITALS: PULSE 83; RESP 20; O2SAT 97
== END 2023-08-09 16:28 | disposition home or self-care (01) ==
PROVIDERS: Emergency Provider Nurse Practitioner Family; PCP Physician Assistant
DX: J20.9 Acute bronchitis, unspecified (principal); Z87.891 Personal history of nicotine dependence; M19.90 Unspecified osteoarthritis, unspecified site; E11.9 Type 2 diabetes mellitus without complications; E78.5 Hyperlipidemia, unspecified; G25.81 Restless legs syndrome; G40.909 Epilepsy, unspecified, not intractable, without status epilepticus; F41.9 Anxiety disorder, unspecified; F32.A Depression, unspecified; Z86.718 Personal history of other venous thrombosis and embolism
CPT/HCPCS: 71046; 87081; 87880; 99213; G0463

== ENCOUNTER 2023-08-29 11:18 | Emergency (ER) | payer OTHER, SELFPAY ==
[2023-08-29 11:33] VITALS: BP 162/98; PULSE 77; RESP 18; TEMP 36.5; O2SAT 98
--- NOTE | 2023-08-29 11:45 | ED.URI ---
HPI - URI/Sore Throat General Chief Complaint: Upper Respiratory Infection Stated Complaint: Sinus Time Seen by Provider: 08/29/23 11:46 Source: patient Mode of arrival: ambulatory Limitations: no limitations History of Present Illness HPI Narrative: 58-year-old female presents with complaint of nasal congestion, sore throat for 1 week. Afebrile. No other complaints today. Taking Mucinex and Tylenol with no relief of symptoms. All systems reviewed and negative except as noted above. Related Data Home Medications Medication Instructions Recorded Confirmed alprazolam 0.25 mg tablet 0.25 mg PO DAILY 07/03/19 08/29/23 carbidopa 25 mg-levodopa 100 mg 1 tablet PO DIRECTED 07/03/19 08/29/23 tablet fenofibrate nanocrystallized 145 145 mg PO DAILY 07/03/19 08/29/23 mg tablet fluoxetine 20 mg capsule 20 mg PO DAILY 07/03/19 08/29/23 montelukast 10 mg tablet 10 mg PO DAILY 07/03/19 08/29/23 atorvastatin 20 mg tablet 20 mg PO DAILY 10/28/20 08/29/23 blood sugar diagnostic #10 ea 10/28/20 08/29/23 lancets 33 gauge (BD Ultra Fine #100 ea 10/28/20 08/09/23 Lancets) phenytoin sodium extended 100 mg 100 mg PO DAILY 10/28/20 08/29/23 capsule baclofen 10 mg tablet 10 mg DIRECTED 05/09/23 08/29/23 dulaglutide 0.75 mg/0.5 mL 0.75 mg subcut DIRECTED 05/09/23 08/29/23 subcutaneous pen injector ([facility]) loratadine 10 mg tablet 10 mg DIRECTED 05/09/23 08/29/23 albuterol sulfate 90 mcg/actuation 90 mcg inhalation DIRECTED 08/09/23 08/29/23 aerosol inhaler Allergies Allergy/AdvReac Type Severity Reaction Status Date / Time fentanyl Allergy Mild Other Verified 08/29/23 11:50 hydrochlorothiazide Allergy Mild Itching Verified 08/29/23 11:50 iodine Allergy Mild Itching Verified 08/29/23 11:50 sertraline Allergy Mild Itching Verified 08/29/23 11:50 SEAFOOD Allergy Intermediate RASH Uncoded 08/29/23 11:50 Review of Systems Review of Systems: CONSTITUTIONAL: Denies fever, chills, or sweats. EYES: Denies visual changes, redness, or discharge. ENT: Reports rhinorrhea, congestion, sore throat. Denies otalgia. CARDIOVASCULAR: Denies chest pain, palpitations, or edema. RESPIRATORY: Denies cough or dyspnea. GASTROINTESTINAL: Denies abdominal pain, nausea, vomiting, or diarrhea. GENITOURINARY: Denies dysuria or hematuria. SKIN: Denies rash or itching. MUSCULOSKELETAL: Denies back pain, joint pain, or myalgia. NEUROLOGIC: Denies headache, numbness, or weakness. PSYCHIATRIC: Denies anxiety or depression. All other systems reviewed are negative, except as documented in HPI. [facility] Past Medical History Medical History Anxiety with depression Arthritis Bronchitis Diabetes Diverticulitis DVT (deep venous thrombosis) Hyperlipidemia Migraines Restless leg syndrome Seasonal allergies Seizures Surgical History Surgical History H/O: hysterectomy History of repair of inguinal hernia History of tonsillectomy and adenoidectomy Previous section S/P right colectomy Family History Family History Mother Hypertension Family history of chronic obstructive pulmonary disease Family history of congestive heart failure Patient's mother is Family history of cardiovascular disease Family history of emphysema Father Cerebrovascular accident Family history of diabetes mellitus in first degree relative Family history of kidney disease Diabetes mellitus Sibling Depression Social History Social History Smoking status: Former smoker Alcohol intake: current Substance use: never Living arrangements: with family Gender identity (if verbalized by the patient): Female Comments At time of signature, agree with nursing past medical, surgical, social
== END 2023-08-29 11:55 | disposition home or self-care (01) ==
PROVIDERS: Emergency Provider Nurse Practitioner Family; PCP Physician Assistant
DX: J01.90 Acute sinusitis, unspecified (principal); Z20.822 Contact with and (suspected) exposure to COVID-19; Z87.891 Personal history of nicotine dependence; E11.9 Type 2 diabetes mellitus without complications; E78.5 Hyperlipidemia, unspecified; G25.81 Restless legs syndrome; G40.909 Epilepsy, unspecified, not intractable, without status epilepticus; F41.9 Anxiety disorder, unspecified; F32.A Depression, unspecified
CPT/HCPCS: 87081; 87426; 87804; 87880; 99213; G0463

== ENCOUNTER 2023-12-20 17:42 | Emergency (ER) | payer OTHER, SELFPAY ==
--- NOTE | 2023-12-20 17:49 | ED.UPPEXIN ---
HPI - Extremity Injury (Upper) General Chief Complaint: Extremity Problem,Nontraumatic Stated Complaint: left shoulder/arm pain Time Seen by Provider: 12/20/23 17:49 Source: patient Mode of arrival: ambulatory Limitations: no limitations History of Present Illness HPI narrative: Patient is a 58-year-old female who presents with left neck pain that radiates to shoulder and arm for 2 months. Patient does report intermittent numbness and tingling to fingers. Patient is currently on baclofen. Patient has taken ibuprofen, Tylenol and oxycodone. Reports oxycodone is the only thing that helped with pain. Related Data Home Medications Medication Instructions Recorded Confirmed alprazolam 0.25 mg tablet 0.25 mg PO DAILY 07/03/19 12/20/23 carbidopa 25 mg-levodopa 100 mg 1 tablet PO DIRECTED 07/03/19 12/20/23 tablet fenofibrate nanocrystallized 145 145 mg PO DAILY 07/03/19 12/20/23 mg tablet fluoxetine 20 mg capsule 20 mg PO DAILY 07/03/19 12/20/23 montelukast 10 mg tablet 10 mg PO DAILY 07/03/19 12/20/23 atorvastatin 20 mg tablet 20 mg PO DAILY 10/28/20 12/20/23 blood sugar diagnostic #10 ea 10/28/20 12/20/23 lancets 33 gauge (BD Ultra Fine #100 ea 10/28/20 12/20/23 Lancets) phenytoin sodium extended 100 mg 100 mg PO DAILY 10/28/20 12/20/23 capsule baclofen 10 mg tablet 10 mg DIRECTED 05/09/23 12/20/23 dulaglutide 0.75 mg/0.5 mL 0.75 mg subcut DIRECTED 05/09/23 12/20/23 subcutaneous pen injector ([facility]) albuterol sulfate 90 mcg/actuation 90 mcg inhalation DIRECTED 08/09/23 12/20/23 aerosol inhaler Allergies Allergy/AdvReac Type Severity Reaction Status Date / Time fentanyl Allergy Mild Other Verified 12/20/23 17:49 hydrochlorothiazide Allergy Mild Itching Verified 12/20/23 17:49 iodine Allergy Mild Itching Verified 12/20/23 17:49 sertraline Allergy Mild Itching Verified 12/20/23 17:49 SEAFOOD Allergy Intermediate RASH Uncoded 12/20/23 17:49 Review of Systems Review of Systems: All systems reviewed & are unremarkable except as noted in HPI and below Constitutional: Constitutional: Denies body ache(s), Denies chills, Denies fatigue, Denies fever(s), Denies headache(s), Denies malaise and Denies weakness Eyes: Eyes: Denies blurry vision, Denies irritation and Denies loss of vision ENT: Denies otalgia, Denies headache(s), Denies nasal discharge, Denies sinus pain and Denies sore throat Cardiovascular: Cardiovascular: Denies chest pain, Denies irregular heart rhythm and Denies dyspnea Respiratory: Respiratory: Denies dyspnea Gastrointestinal: Gastrointestinal: Denies abdominal pain, Denies melena, Denies hematochezia, Denies diarrhea, Denies nausea and Denies vomiting Musculoskeletal: Musculoskeletal: Denies back pain, Denies myalgias, Reports arthralgias and Reports neck pain Integumentary/Breasts: Skin/Breast: Denies pruritus and Denies rash Neurologic: Denies headache(s), Denies loss of vision and Denies weakness Psychiatric: Psychiatric: Reports no additional psychiatric complaints Endocrine: Endocrine: Denies fatigue PMFSH Past Medical History Medical History Anxiety with depression Arthritis Bronchitis Diabetes Diverticulitis DVT (deep venous thrombosis) Hyperlipidemia Migraines Restless leg syndrome Seasonal allergies Seizures Surgical History Surgical History H/O: hysterectomy History of repair of inguinal hernia History of tonsillectomy and adenoidectomy Previous section S/P right colectomy Family History Family History Mother Hypertension Family history of chronic obstructive pulmonary disease Family history of congestive heart failure Patient's mother is Family history of cardiovascular disease Family history of emphysema Father Cerebrovascular accident Family histor
[2023-12-20 17:52] VITALS: BP 133/57; PULSE 80; RESP 20; TEMP 37.1; O2SAT 98
[2023-12-20 17:53] VITALS: BP 133/57; PULSE 80; RESP 20; TEMP 37.1; O2SAT 98
== END 2023-12-20 18:40 | disposition home or self-care (01) ==
PROVIDERS: Emergency Provider Nurse Practitioner Family; PCP Physician Assistant
DX: M54.12 Radiculopathy, cervical region (principal); Z87.891 Personal history of nicotine dependence; M19.90 Unspecified osteoarthritis, unspecified site; E11.9 Type 2 diabetes mellitus without complications; E78.5 Hyperlipidemia, unspecified; G25.81 Restless legs syndrome; G40.909 Epilepsy, unspecified, not intractable, without status epilepticus; Z86.718 Personal history of other venous thrombosis and embolism; F41.8 Other specified anxiety disorders
CPT/HCPCS: 99213; G0463

== ENCOUNTER 2024-03-06 12:54 | Outpatient (CLI) | payer OTHER, SELFPAY ==
--- NOTE | ~2024-03-06 | XR_ITS ---
XR shoulder LT min 2V Ordering provider: Shey Queen, ELIZABET History: . PAIN IN LEFT SHOULDER, RADIATES FROM NECK . Comparison: None. FINDINGS: BONES: No acute fracture or dislocation. JOINT SPACES: The acromioclavicular joint is normal. The glenohumeral joint is normal. SOFT TISSUES: Normal. IMPRESSION: No acute osseous abnormality left shoulder. Reviewed, dictated and finalized at location [facility].
== END 2024-03-06 12:55 | disposition home or self-care (01) ==
LOC: ANHIMG 12:58
PROVIDERS: PCP Physician Assistant; Visit Provider Physician Assistant
DX: M25.512 Pain in left shoulder (principal)
CPT/HCPCS: 73030

== ENCOUNTER 2024-05-03 13:02 | Emergency (ER) | payer OTHER, SELFPAY ==
[2024-05-03 13:09] VITALS: BP 123/69; PULSE 100; RESP 19; TEMP 37.3; O2SAT 97
--- NOTE | 2024-05-03 13:24 | ED.URI ---
HPI - URI/Sore Throat General Chief Complaint: Upper Respiratory Infection Stated Complaint: Sore Throat Time Seen by Provider: 05/03/24 13:09 Source: patient Mode of arrival: ambulatory Limitations: no limitations History of Present Illness HPI Narrative: 59 yo F presents with c/o sore throat for 4 days with nausea, throat swelling, fever, fatigue. All systems reviewed and negative except as noted above. Related Data Home Medications Medication Instructions Recorded Confirmed alprazolam 0.25 mg tablet 0.25 mg PO DAILY 07/03/19 05/03/24 carbidopa 25 mg-levodopa 100 mg 1 tablet PO DIRECTED 07/03/19 05/03/24 tablet fenofibrate nanocrystallized 145 145 mg PO DAILY 07/03/19 05/03/24 mg tablet fluoxetine 20 mg capsule 20 mg PO DAILY 07/03/19 05/03/24 montelukast 10 mg tablet 10 mg PO DAILY 07/03/19 05/03/24 atorvastatin 20 mg tablet 20 mg PO DAILY 10/28/20 05/03/24 blood sugar diagnostic #10 ea 10/28/20 05/03/24 lancets 33 gauge (BD Ultra Fine #100 ea 10/28/20 05/03/24 Lancets) phenytoin sodium extended 100 mg 100 mg PO DAILY 10/28/20 05/03/24 capsule baclofen 10 mg tablet 10 mg DIRECTED 05/09/23 05/03/24 dulaglutide 0.75 mg/0.5 mL 0.75 mg subcut DIRECTED 05/09/23 05/03/24 subcutaneous pen injector (Trulicity) Allergies Allergy/AdvReac Type Severity Reaction Status Date / Time fentanyl Allergy Mild Other Verified 05/03/24 13:30 hydrochlorothiazide Allergy Mild Itching Verified 05/03/24 13:30 iodine Allergy Mild Itching Verified 05/03/24 13:30 sertraline Allergy Mild Itching Verified 05/03/24 13:30 SEAFOOD Allergy Intermediate RASH Uncoded 05/03/24 13:30 Review of Systems Review of Systems: CONSTITUTIONAL: Denies fever, chills, or sweats. EYES: Denies visual changes, redness, or discharge. ENT: Denies rhinorrhea, congestion. Reports sore throat . Denies otalgia. CARDIOVASCULAR: Denies chest pain, palpitations, or edema. RESPIRATORY: Denies cough or dyspnea. GASTROINTESTINAL: Denies abdominal pain. Reports nausea. Denies vomiting, or diarrhea. GENITOURINARY: Denies dysuria or hematuria. SKIN: Denies rash or itching. MUSCULOSKELETAL: Denies back pain, joint pain, or myalgia. NEUROLOGIC: Denies headache, numbness, or weakness. PSYCHIATRIC: Denies anxiety or depression. All other systems reviewed are negative, except as documented in HPI. [facility] Past Medical History Medical History Anxiety with depression Arthritis Bronchitis Diabetes Diverticulitis DVT (deep venous thrombosis) Hyperlipidemia Migraines Restless leg syndrome Seasonal allergies Seizures Surgical History Surgical History H/O: hysterectomy History of repair of inguinal hernia History of tonsillectomy and adenoidectomy Previous section S/P right colectomy Family History Family History Mother Hypertension Family history of chronic obstructive pulmonary disease Family history of congestive heart failure Patient's mother is Family history of cardiovascular disease Family history of emphysema Father Cerebrovascular accident Family history of diabetes mellitus in first degree relative Family history of kidney disease Diabetes mellitus Sibling Depression Social History Social History Smoking status: Former smoker Alcohol intake: current Substance use: never Living arrangements: with family Gender identity (if verbalized by the patient): Female Comments At time of signature, agree with nursing past medical, surgical, social and family history. There is no relevant family history pertinent to the presenting complaint. Exam Narrative: GENERAL: This is a well-nourished, well-developed patient, patient ill-appearing but no acute distress HEAD: normo
[2024-05-03 13:32] LABS: EDSTREPNEGPOS1 Positive (Negative)
== END 2024-05-03 13:45 | disposition home or self-care (01) ==
PROVIDERS: Emergency Provider Nurse Practitioner Family; PCP Physician Assistant
DX: J02.0 Streptococcal pharyngitis (principal); E11.9 Type 2 diabetes mellitus without complications; E78.5 Hyperlipidemia, unspecified; Z79.899 Other long term (current) drug therapy; Z86.718 Personal history of other venous thrombosis and embolism; Z87.891 Personal history of nicotine dependence
CPT/HCPCS: 87880; 99213; G0463

== ENCOUNTER 2024-06-16 09:45 | Outpatient (RCR) | payer OTHER, SELFPAY ==
--- NOTE | 2024-05-26 16:32 | OPREHPOC ---
Outpatient Therapy Plan of Care This is a Multidisciplinary Plan of Care that may contain components documented by all disciplines (PT, OT, and ST.) PT Goal 1 Goal / Goal Update [place] with HEP Target Visit 4 PT Goal 2 Goal / Goal Update Report 20% improvement on QuickDASH Target Visit 8 PT Problem 2 PT Problem #2 Impaired Range of Motion PT Goal 1 Goal / Goal Update Achieve 170 degrees of left shoulder flexion ROM for improved active reach Target Visit 10 PT Goal 2 Goal / Goal Update Improve left shoulder external rotation to 85 degrees to improve capsular mobility Target Visit 10 PT Problem 3 PT Problem #3 Impaired Strength PT Goal 1 Goal / Goal Update Improve left shoulder external rotation strength to 4+/5 to improve stability for ADL improvement Target Visit 8 PT Goal 2 Goal / Goal Update Improve left shoulder flexion strength to 4+/5 to improve active object lifting with pain free motion Target Visit 8
--- NOTE | 2024-05-26 16:32 | PTOPEVAL1 ---
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 Reports that most of her pain is in her neck and lateral shoulder with occasional pain down to the hand. She had x-rays and they were negative. She notices a lot of tenderness to her left upper trapezius. She has good days and bad days sleeping and it varies based on activity. Denies medication for shoulder. She is taking Baclofen for back spasms. Reported Pain Level Pain Score 9: Self Report Assessment PT Clinical Summary Patient presents with signs and symptoms consistent with potential adhesive capsulitis. Patient has history of trauma with capsular pattern restriction with motion. Patient will benefit form skilled therapy to address these deficits for improved functional motion and reduce pain wit UE activity. Plan of Care Interventions Electrical Stimulation,Hot Pack/Cold Pack,Manual Therapy,Neuro Re-education,Therapeutic Activities, Therapeutic Exercise PT Services Indicated Yes Treatment Frequency and 2x/week for 8 visits Duration These treatments will address the objective and functional deficits as defined above. The patient will be advanced safely and appropriately in order for the patient to progress towards his/her prior level of function. Additional exercises will be introduced and as well as a comprehensive home exercise program upon discharge, if needed, ?to ensure carryover of functional gains achieved in the clinic. This treatment plan has been reviewed and agreement upon by the patient.
--- NOTE | 2024-07-31 13:21 | PTOPDC ---
Assessment and note entered by Kimberly Edward, PT Assessment Status Discharge - Pt Not Present ICD-10 Condition Codes (PT) Pain in left shoulder M25.512 Onset May 2023 Subjective Information pt was not seen this date. Assessment PT Clinical Summary Jayme has received 6 PT sessions. She then stopped attending therapy. Discharge PT. The goals were not addressed. Plan of Care PT Services Indicated No
== END 2024-07-31 17:51 | disposition home or self-care (01) ==
LOC: ANHPT 09:45
PROVIDERS: PCP Physician Assistant; Visit Provider Physician Assistant
DX: M25.512 Pain in left shoulder (principal)
CPT/HCPCS: 97110; 97140; 97161

== ENCOUNTER 2024-07-31 01:29 | Day surgery (SDC) | payer OTHER, SELFPAY ==
[2024-07-11 10:00] VITALS: BMI 41.5
[2024-07-31 07:26] VITALS: BP 149/74; PULSE 70; RESP 70; TEMP 36.1; O2SAT 97; BMI 42.5
--- NOTE | 2024-07-31 07:34 | WPDANESEPPF ---
Anes - Initial Pre Proc Eval Procedure: Operation Date: 07/31/24 08:30 Proposed Procedures p Screening Colonoscopy - Kaden Garza MD Date/Time: 07/31/24 07:34 Surgeon: Kaden Garza MD Pre Op Diagnosis: colon screening Patient Data Age: 59 Gender: F Height: 1.65 m Weight: 116.1 kg Last Vital Signs Temp 36.1 C L 07/31/24 07:26 Pulse 70 07/31/24 07:26 Resp 70 H 07/31/24 07:26 BP 149/74 H 07/31/24 07:26 Pulse Ox 97 07/31/24 07:26 O2 Del Method Room Air 07/31/24 07:26 Allergies Allergy/AdvReac Type Severity Reaction Status Date / Time fentanyl Allergy Mild Other Verified 07/31/24 07:22 hydrochlorothiazide Allergy Mild Itching Verified 07/31/24 07:22 iodine Allergy Mild Itching Verified 07/31/24 07:22 sertraline Allergy Mild Itching Verified 07/31/24 07:22 SEAFOOD Allergy Intermediate RASH Uncoded 07/31/24 07:22 Home Medications ?Medication ?Instructions ?Recorded ?Confirmed ?Type alprazolam 0.25 mg tablet 0.25 mg PO BID PRN anxiety 07/03/19 07/11/24 History carbidopa 25 mg-levodopa 100 mg 1 tablet PO BID 07/03/19 07/11/24 History tablet fenofibrate nanocrystallized 145 145 mg PO DAILY 07/03/19 07/11/24 History mg tablet fluoxetine 20 mg capsule 20 mg PO DAILY 07/03/19 07/11/24 History montelukast 10 mg tablet 10 mg PO DAILY 07/03/19 07/11/24 History atorvastatin 20 mg tablet 20 mg PO DAILY 10/28/20 07/11/24 History blood sugar diagnostic #10 ea 10/28/20 07/11/24 History lancets 33 gauge (BD Ultra Fine #100 ea 10/28/20 07/11/24 History Lancets) phenytoin sodium extended 100 mg 500 mg PO DAILY 10/28/20 07/11/24 History capsule inhalational spacing device #1 ea 07/21/22 07/11/24 Rx (Aerochamber Plus Z Stat spacer) baclofen 10 mg tablet 10 mg PO DIRECTED PRN muscle 05/09/23 07/11/24 History spasm dulaglutide 0.75 mg/0.5 mL 3 mg subcut WEEKLY 05/09/23 07/11/24 History subcutaneous pen injector (Trulicity) inhalational spacing device #1 ea 05/09/23 07/11/24 Rx (Aerochamber MV spacer) albuterol sulfate 90 mcg/actuation 2 puff inhalation Q4-6H PRN 08/09/23 07/11/24 Rx aerosol inhaler shortness of breath or wheezing 30 days #8.5 grams empagliflozin 10 mg tablet 10 mg PO DAILY 07/11/24 07/11/24 History (Jardiance) venlafaxine 37.5 mg 37.5 mg PO DAILY 07/11/24 07/11/24 History capsule,extended release 24 hr Patient hx anesthesia problems: none Family hx anesthesia problems: none Results Review: All pre-operative results and documents have been reviewed as part of the pre-operative evaluation. [facility] Past Medical History Medical History DVT (deep venous thrombosis) Diverticulitis Anxiety with depression Migraines Hyperlipidemia Diabetes Seizures Restless leg syndrome Arthritis Seasonal allergies Bronchitis Surgical History Surgical History History of repair of inguinal hernia Previous section H/O: hysterectomy History of tonsillectomy and adenoidectomy S/P right colectomy Family History Family History Mother Hypertension Family history of chronic obstructive pulmonary disease Family history of congestive heart failure Patient's mother is Family history of cardiovascular disease Family history of emphysema Father Cerebrovascular accident Family history of diabetes mellitus in first degree relative Family history of kidney disease Diabetes mellitus Sibling Depression Social History Social History Smoking status: Former smoker Alcohol intake: current Substance use: never Living arrangements: with family Gender identity (if verbalized by the patient): Female Anes - Eval Final PreProcedure Day of Procedure 07/31/24 07:34 Patient weight: morbidly obese Heart: regular rate and rhythm Lungs: clear to auscultation Airway: Mallampati scale class II Neurological: alert and oriented Last oral intake: >/= 8 hours ASA classification: IV Emergent: no Anesthetic plan: proceed Anesthesia type and monitoring: general GIVS and standard monitoring Results Review: All pre-operative results and documents have been reviewed as part of the pre-operative evaluation. Informed Consent: The patient's anesthetic plan and its attendant risks and benefits were discussed with the patient/family/POA. Questions were solicited and answers provided to the satisfaction of the patient/family/POA.
[2024-07-31] MEDS: LACTATED RINGERS 1,000 ML 150 ML IV CONT (07:37)
[2024-07-31 07:43] LABS: Glucose Point of Care 163 mg/dl (65-105)
--- NOTE | 2024-07-31 08:20 | PM.HPGS ---
History of Present Illness History of Present Illness Consent: Risks, benefits, and alternatives have been discussed and questions answered. Patient agrees to proceed with procedure. Chief complaint: colon screening Narrative: Jayme Lepe is a 59 year old female here for screening colonoscopy, last one 2008. Review of Systems Review of Systems: All systems reviewed & are unremarkable except as noted in HPI and below PMFSH Past Medical History Medical History (Updated 07/31/24 @ 08:21 by Kaden Garza MD) Colon cancer screening DVT (deep venous thrombosis) Diverticulitis Anxiety with depression Migraines Hyperlipidemia Diabetes Seizures Restless leg syndrome Arthritis Seasonal allergies Bronchitis Surgical History Surgical History History of repair of inguinal hernia Previous section H/O: hysterectomy History of tonsillectomy and adenoidectomy S/P right colectomy Family History Family History Mother Hypertension Family history of chronic obstructive pulmonary disease Family history of congestive heart failure Patient's mother is Family history of cardiovascular disease Family history of emphysema Father Cerebrovascular accident Family history of diabetes mellitus in first degree relative Family history of kidney disease Diabetes mellitus Sibling Depression Social History Social History Smoking status: Former smoker Alcohol intake: current Substance use: never Living arrangements: with family Gender identity (if verbalized by the patient): Female Meds Home Medications and Allergies Home Medications ?Medication ?Instructions ?Recorded ?Confirmed ?Type alprazolam 0.25 mg tablet 0.25 mg PO BID PRN anxiety 07/03/19 07/11/24 History carbidopa 25 mg-levodopa 100 mg 1 tablet PO BID 07/03/19 07/11/24 History tablet fenofibrate nanocrystallized 145 145 mg PO DAILY 07/03/19 07/11/24 History mg tablet fluoxetine 20 mg capsule 20 mg PO DAILY 07/03/19 07/11/24 History montelukast 10 mg tablet 10 mg PO DAILY 07/03/19 07/11/24 History atorvastatin 20 mg tablet 20 mg PO DAILY 10/28/20 07/11/24 History blood sugar diagnostic #10 ea 10/28/20 07/11/24 History lancets 33 gauge (BD Ultra Fine #100 ea 10/28/20 07/11/24 History Lancets) phenytoin sodium extended 100 mg 500 mg PO DAILY 10/28/20 07/11/24 History capsule inhalational spacing device #1 ea 07/21/22 07/11/24 Rx (Aerochamber Plus Z Stat spacer) baclofen 10 mg tablet 10 mg PO DIRECTED PRN muscle 05/09/23 07/11/24 History spasm dulaglutide 0.75 mg/0.5 mL 3 mg subcut WEEKLY 05/09/23 07/11/24 History subcutaneous pen injector (Trulicity) inhalational spacing device #1 ea 05/09/23 07/11/24 Rx (Aerochamber MV spacer) albuterol sulfate 90 mcg/actuation 2 puff inhalation Q4-6H PRN 08/09/23 07/11/24 Rx aerosol inhaler shortness of breath or wheezing 30 days #8.5 grams empagliflozin 10 mg tablet 10 mg PO DAILY 07/11/24 07/11/24 History (Jardiance) venlafaxine 37.5 mg 37.5 mg PO DAILY 07/11/24 07/11/24 History capsule,extended release 24 hr Allergies Allergy/AdvReac Type Severity Reaction Status Date / Time fentanyl Allergy Mild Other Verified 07/31/24 07:22 hydrochlorothiazide Allergy Mild Itching Verified 07/31/24 07:22 iodine Allergy Mild Itching Verified 07/31/24 07:22 sertraline Allergy Mild Itching Verified 07/31/24 07:22 SEAFOOD Allergy Intermediate RASH Uncoded 07/31/24 07:22 Vital Signs Vital Signs - 24 hr 07/31/24 07:26 Temperature 97 F L Pulse Rate 70 Respiratory Rate 70 H Blood Pressure 149/74 H Pulse Oximetry 97 Oxygen Delivery Room Air Exam Const: General: comfortable and no acute distress HENMT: Face/Nose/Sinus: Normal nares present Eyes: General: appearance normal, both eyes and all related structures Neck: Neck: no JVD Resp: Auscultation: clear to auscultation bilaterally Cardio: Rate: regular rate Rhythm: regular rhythm GI: Inspection: non-distended GI Palp: Yes Soft to palpation Skin: General skin exam: normal color Neuro: General: gait normal Speech: normal speech Extrem: General: normal to inspection Psych: Mental Status: mental status grossly normal Assessment and Plan Assessment and plan (1) Colon cancer screening: Code(s): Z12.11 - Encounter for screening for malignant neoplasm of colon Status: Acute Assessment and Plan: colonoscopy
[2024-07-31 08:49] VITALS: BP 92/62; PULSE 67; RESP 20; O2SAT 97
[2024-07-31 08:59] VITALS: BP 117/73; PULSE 66; RESP 16; O2SAT 99
[2024-07-31 09:06] LABS: Glucose Point of Care 141 mg/dl (65-105)
[2024-07-31 09:09] VITALS: BP 131/67; PULSE 67; RESP 23; O2SAT 100
== END 2024-07-31 09:15 | disposition home or self-care (01) ==
PROVIDERS: PCP Physician Assistant; Visit Provider Internal Medicine Gastroenterology
PROC: 0DJD8ZZ Inspection of Lower Intestinal Tract, Via Natural or Artificial Opening Endoscopic (ICD-10-PCS; CPT 45378; principal; 2024-07-31 08:30)
DX: Z12.11 Encounter for screening for malignant neoplasm of colon (principal); D12.4 Benign neoplasm of descending colon; E78.5 Hyperlipidemia, unspecified; E11.9 Type 2 diabetes mellitus without complications; G25.81 Restless legs syndrome; F41.8 Other specified anxiety disorders; R56.9 Unspecified convulsions; M19.90 Unspecified osteoarthritis, unspecified site; E66.01 Morbid (severe) obesity due to excess calories; Z68.41 Body mass index [BMI] 40.0-44.9, adult; Z79.51 Long term (current) use of inhaled steroids; Z79.85 Long-term (current) use of injectable non-insulin antidiabetic drugs; Z79.84 Long term (current) use of oral hypoglycemic drugs; Z98.890 Other specified postprocedural states; Z98.0 Intestinal bypass and anastomosis status; Z90.49 Acquired absence of other specified parts of digestive tract; Z87.891 Personal history of nicotine dependence; Z86.718 Personal history of other venous thrombosis and embolism; Z87.19 Personal history of other diseases of the digestive system; Z82.49 Family history of ischemic heart disease and other diseases of the circulatory system
CPT/HCPCS: 45385; 82948; 88305; J2003; J2704; J7120

== ENCOUNTER 2024-10-26 18:09 | Emergency (ER) | payer OTHER, SELFPAY ==
[2024-10-26 18:19] VITALS: BP 142/81; PULSE 95; RESP 16; TEMP 37.7; O2SAT 97
[2024-10-26 18:43] LABS: EDCOVIDSCREEN Negative (Negative); EDINFLUASCREEN Negative (Negative); EDINFLUBSCREEN Negative (Negative)
--- NOTE | 2024-10-26 18:44 | ED_ITS ---
HPI - Nausea/Vomiting/Diarrhea General Chief complaint: Nausea/Vomiting/Diarrhea Stated complaint: diarrhea,vomiting,dizzy,cold work note Time Seen by Provider: 10/26/24 18:24 Source: patient and RN notes reviewed Mode of arrival: ambulatory Limitations: no limitations History of Present Illness HPI Narrative: Patient presents today complaining of nausea, vomiting, diarrhea, chills, abdominal cramping. Symptoms began at 3:00 a.m. this morning. Her last vomiting episode was approximately 4 hours prior to arrival. Her last diarrhea episode was just prior to exam. Denies blood or mucus in the stool, known sick contacts, fever, abdominal pain. She has had some Sprite and water to drink today. Denies any recent travel or suspicious food intake. History of diabetes. Has not checked her sugar or taken any medications today. Related Data Home Medications ?Medication ?Instructions ?Recorded ?Confirmed ?Last Taken ?Type alprazolam 0.25 mg tablet 0.25 mg PO BID PRN anxiety 07/03/19 10/26/24 Unknown History carbidopa 25 mg-levodopa 100 mg 1 tablet PO BID 07/03/19 10/26/24 Unknown History tablet fenofibrate nanocrystallized 145 145 mg PO DAILY 07/03/19 10/26/24 Unknown History mg tablet fluoxetine 20 mg capsule 20 mg PO DAILY 07/03/19 10/26/24 Unknown History montelukast 10 mg tablet 10 mg PO DAILY 07/03/19 10/26/24 Unknown History atorvastatin 20 mg tablet 20 mg PO DAILY 10/28/20 10/26/24 Unknown History blood sugar diagnostic #10 ea 10/28/20 10/26/24 Unknown History lancets 33 gauge (BD Ultra Fine #100 ea 10/28/20 10/26/24 Unknown History Lancets) phenytoin sodium extended 100 mg 500 mg PO DAILY 10/28/20 10/26/24 Unknown History capsule baclofen 10 mg tablet 10 mg PO DIRECTED PRN muscle 05/09/23 10/26/24 Unknown History spasm dulaglutide 0.75 mg/0.5 mL 3 mg subcut WEEKLY 05/09/23 10/26/24 Unknown History subcutaneous pen injector (Trulicity) empagliflozin 10 mg tablet 10 mg PO DAILY 07/11/24 10/26/24 Unknown History (Jardiance) venlafaxine 37.5 mg 37.5 mg PO DAILY 07/11/24 10/26/24 Unknown History capsule,extended release 24 hr dulaglutide 3 mg/0.5 mL 3 mg subcut WEEKLY 10/26/24 10/26/24 Unknown History subcutaneous pen injector (Trulicity) hydroxyzine HCl 25 mg tablet 25 mg PO BID 10/26/24 10/26/24 Unknown History loratadine 10 mg tablet 10 mg PO Q24H 10/26/24 10/26/24 Unknown History Allergies Allergy/AdvReac Type Severity Reaction Status Date / Time fentanyl Allergy Mild Other Verified 10/26/24 18:11 hydrochlorothiazide Allergy Mild Itching Verified 10/26/24 18:11 iodine Allergy Mild Itching Verified 10/26/24 18:11 sertraline Allergy Mild Itching Verified 10/26/24 18:11 SEAFOOD Allergy Intermediate RASH Uncoded 10/26/24 18:11 Review of Systems Review of Systems: CONSTITUTIONAL: Denies body aches, fever, or sweats.+ chills EYES: Denies visual changes, redness, or discharge. ENT: Denies rhinorrhea, congestion, sore throat, or otalgia. CARDIOVASCULAR: Denies chest pain, palpitations, or edema. RESPIRATORY: Denies cough or dyspnea. GASTROINTESTINAL: Denies abdominal pain. + nausea, vomiting, diarrhea, abdominal cramping GENITOURINARY: Denies dysuria or hematuria. SKIN: Denies rash, itching, or wounds. MUSCULOSKELETAL: Denies back pain, joint pain, or myalgia. NEUROLOGIC: Denies headache, numbness, tingling, or weakness.+ dizziness PSYCH: Denies depression or anxiety. [facility] Past Medical History Medical History Colon cancer screening DVT (deep venous thrombosis) Diverticulitis Anxiety with depression Migraines Hyperlipidemia Diabetes Seizures Restless leg syndrome Arthritis Seasonal allergies Bronchitis Surgical History Surgical History History of repair of inguinal hernia Previous section H/O: hysterectomy History of tonsillectomy and adenoidectomy S/P right colectomy Family History Family History Mother Hypertension Family history of chronic obstructive pulmonary disease Family history of congestive heart failure Patient's mother is Family history of cardiovascular disease Family history of emphysema Father Cerebrovascular accident Family history of diabetes mellitus in first degree relative Family history of kidney disease Diabetes mellitus Sibling Depression Social History Social History Smoking status: Former smoker Tobacco type: cigarettes Alcohol intake: current Substance use: never Substance use type: does not use Living arrangements: with family Gender identity (if verbalized by the patient): Female Spiritual care concerns: No Comments At time of signature, I have reviewed and agree with nursing past medical, surgical, social and family history unless otherwise noted. Please see nursing chart for further information. There is no relevant family history pertinent to the presenting complaint Exam Narrative: GENERAL: Well-appearing, well-nourished, and in no acute distress. HEAD: Normocephalic, atraumatic. EYES: EOMI. No redness or drainage. Conjunctivae normal. ENT: Mucous membranes pink and moist. Nares clear. No rhinorrhea. TMs normal bilaterally. Throat normal. Uvula midline. NECK: Normal AROM. Supple. No lymphadenopathy. CHEST: No respiratory distress. Clear to auscultation. HEART: Regular rate and rhythm. No murmur appreciated. Normal peripheral pulses. ABDOMEN: Soft, nontender, nondistended, hyper active bowel sounds. EXTREMITIES: Normal range of motion. No edema. SKIN: Warm, dry, no rash. Capillary refill normal. Normal skin turgor. NEURO: No focal deficits. Alert and oriented x3. Gait steady. PSYCH: Normal affect. No signs of depression or anxiety. Course Course Level of Care: Express Care Visit Vital Signs Vital signs: Vital Signs Temperature 99.9 F H 10/26/24 18:19 Pulse Rate 95 10/26/24 18:19 Respiratory Rate 16 10/26/24 18:19 Blood Pressure 142/81 H 10/26/24 18:19 Pulse Oximetry 97 10/26/24 18:19 Oxygen Delivery Room Air 10/26/24 18:19 Temperature 99.9 F H 10/26/24 18:19 Pulse Rate 95 10/26/24 18:19 Respiratory Rate 16 10/26/24 18:19 Blood Pressure 142/81 H 10/26/24 18:19 Pulse Oximetry 97 10/26/24 18:19 Oxygen Delivery Room Air 10/26/24 18:19 Reviewed MDM - Nausea/Vomiting/Diarrhea MDM Narrative Medical decision making narrative: COVID and influenza negative. (patient requested these tests.) Symptoms likely viral in etiology. Discussed [id number] medication use and duration of illness. Patient declines dose of Zofran in clinic today. Prescription sent to pharmacy. She is requesting a work excuse for the next couple of days. Anticipatory guidance given. ED precautions given. Differential Diagnosis Differential diagnosis: Likely food poisoning, gastroenteritis and dehydration Lab Data Attestation: I reviewed the patient's lab results. Lab results narrative: Bedside glucose 165 Labs: Lab Results 10/26/24 Range/Units 18:25 POC Influenza A Ag Negative (Negative) POC Influenza B Ag Negative (Negative) POC SARS CoV-2 Ag Negative (Negative) Critical Care Time Critical Care Time Critical Care Time: No Discharge Plan Discharge Clinical Impression: Nausea vomiting and diarrhea Patient Disposition: Home, Self-Care Condition: Stable Instructions: Acute Nausea and Vomiting (DC), Acute Diarrhea (ED) Additional Instructions: Please take the Zofran as prescribed. Rest and take small sips of fluids to stay hydrated. As discussed, if symptoms worsen to include uncontrolled vomiting, blood or mucus in your stool, feelings of dehydration, please go to the ER immediately for further evaluation and treatment. Your blood pressure was elevated above 120/80 today at Urgent Care. This puts you above the threshold for follow up. Please schedule a followup visit with your personal physician as soon as possible, for further evaluation and treatment. Even blood pressure exceeding 120/80 may indicate pre-hypertension. Patient Language: Cameroonian Prescriptions: New ondansetron 8 mg tablet,disintegrating 8 mg PO Q4-6H PRN (Reason: nausea and vomiting) Qty: 15 0RF No Action alprazolam 0.25 mg tablet 0.25 mg PO BID PRN (Reason: anxiety) montelukast 10 mg tablet 10 mg PO DAILY carbidopa-levodopa 25-100 mg tablet 1 tablet PO BID fluoxetine 20 mg capsule 20 mg PO DAILY fenofibrate nanocrystallized 145 mg tablet 145 mg PO DAILY (DME) Aerochamber Plus Z Stat Spacer See Rx Instructions .Route Qty: 1 0RF Rx Instructions: As directed Trulicity 0.75 mg/0.5 mL pen injector 3 mg SUBCUT WEEKLY baclofen 10 mg tablet 10 mg PO DIRECTED PRN (Reason: muscle spasm) (DME) Aerochamber MV Spacer See Rx Instructions .Route Qty: 1 0RF Rx Instructions: As directed Trulicity 3 mg/0.5 mL pen injector 3 mg SUBCUT WEEKLY hydroxyzine HCl 25 mg tablet 25 mg PO BID loratadine 10 mg tablet 10 mg PO Q24H albuterol sulfate 90 mcg/actuation HFA aerosol inhaler 2 puff inhalation Q4-6H PRN (Reason: shortness of breath or wheezing) 30 Days Qty: 8.5 0RF atorvastatin 20 mg tablet 20 mg PO DAILY (DME) blood sugar diagnostic Strip See Rx Instructions .ROUTE .MEDSUPPLY Qty: 10 Rx Instructions: As directed phenytoin sodium extended 100 mg capsule 500 mg PO DAILY (DME) lancets [BD Ultra Fine Lancets] 33 gauge misc See Rx Instructions .ROUTE .MEDSUPPLY Qty: 100 Rx Instructions: As directed Jardiance 10 mg tablet 10 mg PO DAILY venlafaxine 37.5 mg capsule,extended release 24hr 37.5 mg PO DAILY Follow-up/Referrals: Bernice,ELIZABET Wilson [Primary Care Provider] - Stand Alone Forms: Work/School Release IP Time of Disposition: 18:49
[2024-10-26 18:56] LABS: Glucose Point of Care 165 mg/dl (65-105)
== END 2024-10-26 18:58 | disposition home or self-care (01) ==
PROVIDERS: Emergency Provider Nurse Practitioner; PCP Physician Assistant
DX: R11.2 Nausea with vomiting, unspecified (principal); R19.7 Diarrhea, unspecified; Z20.822 Contact with and (suspected) exposure to COVID-19; Z87.891 Personal history of nicotine dependence; E11.9 Type 2 diabetes mellitus without complications; G25.81 Restless legs syndrome; M19.90 Unspecified osteoarthritis, unspecified site; Z86.718 Personal history of other venous thrombosis and embolism; F41.9 Anxiety disorder, unspecified; F32.A Depression, unspecified; Z87.19 Personal history of other diseases of the digestive system; Z90.49 Acquired absence of other specified parts of digestive tract
CPT/HCPCS: 82948; 87426; 87804; 99213; G0463